=== PATIENT | female | born 1975 | race Caucasian/White ===

== ENCOUNTER → 2017-02-21 | Outpatient (CLI) | payer BC | LOC: MC.RAD 15:00 | DX: Z12.31 Encounter for screening mammogram for malignant neoplasm of breast (principal) ==

== ENCOUNTER → 2018-02-22 | Outpatient (CLI) | payer BC | LOC: MC.RAD 14:19 | DX: Z12.31 Encounter for screening mammogram for malignant neoplasm of breast (principal) ==

== ENCOUNTER 2019-08-22 08:05 | Inpatient (IN) | payer BC ==
[~2019-08-22] VITALS: Ht 157.5 cm; Wt 84.2 kg
[2019-09-10] VITALS (13 sets, daily range): BP systolic 102–133; BP diastolic 43–71; PULSE 69–110; TEMP 98.5–99.6
[2019-09-10] MEDS ORDERED: PRINZIDE 12.5 M1 TA1 PO (06:30)
[2019-09-10] MEDS ORDERED: PIRMELLA 1/351 TAB PO (06:30)
[2019-09-10] MEDS ORDERED: ZOCOR 20MG20 MG PO (06:31)
[2019-09-10] MEDS ORDERED: LOPID 600M600 MG/TAB PO (06:31)
[2019-09-10] MEDS ORDERED: TYLENOL 500MG500 MG PO (06:32)
[2019-09-10] MEDS ORDERED: WOMEN'S DAILY1 TAB PO (06:32)
[2019-09-10] MEDS ORDERED: AMBIEN 5MG TABLE5 MG PO (06:32)
--- NOTE | 2019-09-10 10:40 | NUR ---
1040- Pt to room 221 via bed. Call light within reach. Pt states she is feeling strong bladder spasms, feels like she needs to void, del angel draining clear, yellow urine. SCDs on. VSS.
--- NOTE | 2019-09-10 12:15 | NUR ---
1215- PT states pain has impoved some, cramping is now intermittent so has some relief. Denies additional pain medication at this time. Encourged Pt to eat crackers so PO pain meds can be given, Pt verbalizes understanding.
[2019-09-11 00:35] VITALS: BP 116/52; PULSE 98; TEMP 98.2
[2019-09-11 06:30] VITALS: BP 109/70; PULSE 82; TEMP 98.3
[2019-09-11] MEDS ORDERED: IBU600 MG PO (08:58)
[2019-09-11] MEDS ORDERED: PERCOCET 325 MG1 TA2 PO (08:59)
== END 2019-09-11 13:00 | disposition home or self-care (01) | DRG 743 ==
LOC: INPTSU 09-10 05:31 → OB 09-10 07:30
PROVIDERS: ADMIT Obstetrics & Gynecology
PROC: 0UT90ZZ Resection of Uterus, Open Approach (ICD-10-PCS; principal; 2019-09-09)
PROC: 0UT70ZZ Resection of Bilateral Fallopian Tubes, Open Approach (ICD-10-PCS; 2019-09-09)
DX: D25.9 Leiomyoma of uterus, unspecified (principal); I10 Essential (primary) hypertension; E78.00 Pure hypercholesterolemia, unspecified; E78.1 Pure hyperglyceridemia
CPT/HCPCS: A4314; J0171; J0690; J1100; J1170; J1885; J2175; J2405; J2704; J2710; J3010; J7120

== ENCOUNTER → 2021-02-14 | Outpatient (CLI) | payer BC ==
[~2021-02-14] MED LIST: AMBIEN 5MG TABLE5 MG PO; IBU600 MG PO; LOPID 600M600 MG/TAB PO; PERCOCET 325 MG1 TA2 PO; PIRMELLA 1/351 TAB PO; PRINZIDE 12.5 M1 TA1 PO; TYLENOL 500MG500 MG PO; WOMEN'S DAILY1 TAB PO; ZOCOR 20MG20 MG PO
== END ==
LOC: COL.RAD 07:51
DX: R16.0 Hepatomegaly, not elsewhere classified (principal); R10.11 Right upper quadrant pain
CPT/HCPCS: Q9967